=== PATIENT | female | born 1985 | race Caucasian/White ===

== ENCOUNTER 2016-09-10 20:51 | Emergency (ER) | payer SELFPAY ==
[~2016-09-10] VITALS: Ht 162.6 cm; Wt 82.0 kg
[~2016-09-10 20:51] MED LIST: PREN1TAB17 PO
[2016-09-10 20:55] VITALS: Ht 162.6 cm; Wt 82.0 kg
[2016-09-10 21:37] LABS: URINE BLOOD (Dip) POC 3+ (NEGATIVE)
[2016-09-10 22:27] LABS: ADD UMIC YES; URINE BILIRUBIN (Dip) NEGATIVE (NEGATIVE); URINE BLOOD (Dip) 3+ (NEGATIVE); URINE GLUCOSE (Dip) NEGATIVE (NEGATIVE); URINE KETONES (Dip) NEGATIVE (NEGATIVE); URINE LEUKOCYTE ESTERASE (Dip) NEGATIVE (NEGATIVE); URINE NITRITE (Dip) NEGATIVE (NEGATIVE); URINE TOTAL PROTEIN (Dip) TRACE (NEGATIVE); URINE UROBILINOGEN (Dip) 1.0 E.U./dL (0.1-1.0)
[2016-09-10 22:39] LABS: SQUAMOUS EPITHELIAL CELL,UR MODERATE; URINE COLOR DARK YELLOW (YELLOW); URINE RBCS >200 /HPF (0)
[2016-09-10 22:40] LABS: BACTERIA,URINE FEW
--- NOTE | 2016-09-10 22:49 | RADRPT ---
PROCEDURE: US Pelvis. CLINICAL INDICATION: Abdominal pain. TECHNIQUE: Multiple sonographic images of the pelvis were obtained utilizing a transabdominal and endovaginal technique. The images were reviewed on a PACS workstation. COMPARISON: None. FINDINGS: The uterus is visualized and measures 84 x 46 x 58 mm. The endometrial echo complex is normal and me asures 7 mm. IUD in normal position. There is no evidence for free fluid. The right ovary has a normal echotexture and measures 31 x 16 x 24 mm . The left ovary has a normal echotexture and measures 31 x 16 x 21 mm. No evident ovarian torsion. No adnexal masses are noted. IMPRESSION: No acute process in the pelvis. RPTAT: [facility] Physician Justyn Date Time Electronically viewed and signed by Physician Justyn on 09/10/2016 22:48 RS/
[2016-09-10 23:10] LABS: BASOPHILS % 0.7 % (0.0-2.0); EOSINOPHILS # 0.3 10^3/ul (0.0-0.5); EOSINOPHILS % 4.7 % (0.0-7.0); HEMATOCRIT 37.4 % (37.0-47.0); HEMOGLOBIN 12.9 g/dl (12.0-16.0); LYMPHOCYTES # 2.7 10^3/ul (0.8-2.9); LYMPHOCYTES % 44.1 % (15.0-51.0); MEAN CORPUSCULAR HEMOGLOBIN 30.7 pg (29.0-33.0); MEAN CORPUSCULAR HGB CONC 34.6 g/dl (32.0-37.0); MEAN CORPUSCULAR VOLUME 88.6 fl (82.0-101.0); MEAN PLATELET VOLUME 7.3 fl (7.4-10.4); MONOCYTE # 0.5 10^3/ul (0.3-0.9); MONOCYTES % 7.6 % (0.0-11.0); NEUTROPHIL # 2.6 10^3/ul (1.6-7.5); NEUTROPHILS % 42.9 % (39.0-77.0); PLATELET COUNT 261 10^3/UL (140-440); RED BLOOD COUNT 4.22 10^6/ul (4.20-5.40); RED CELL DISTRIBUTION WIDTH 13.4 % (11.5-14.5); UNCORRECTED WBC 6.1 10^3/ul (4.8-10.8); WHITE BLOOD COUNT 6.1 10^3/ul (4.8-10.8)
[2016-09-10 23:21] LABS: ALBUMIN 4.4 g/dl (3.3-4.9)
[2016-09-10 23:22] LABS: POTASSIUM 4.1 mmol/L (3.5-5.1)
[2016-09-10 23:24] LABS: ALBUMIN/GLOBULIN RATIO 1.33; BILIRUBIN,INDIRECT 0.2 mg/dl (0-1.1); BILIRUBIN,TOTAL 0.2 mg/dl (0.2-1.3); CREATININE 0.7 mg/dl (0.44-1.00); TOTAL PROTEIN 7.7 g/dl (6.1-8.1)
[2016-09-10 23:35] LABS: CONDITION 1
[2016-09-11] MEDS ORDERED: IBUP-1542 PO (01:05)
[2016-09-11 01:25] VITALS: BP 132/66; PULSE 75; RESP 18; TEMP 98
--- NOTE | 2016-09-11 01:34 | ERD ---
ER Documentation Chief Complaint Date/Time DATE: 09/11/16 TIME: 01:33 Chief Complaint vag bleed x 4 days, 24 pads/day HPI 31-year-old female with no significant past medical history presents to the ED complaining of vaginal bleeding that started 4 days ago. States that she is changing about 24 pads per day. States that her last menses started 4 days ago on September 07, 2016. Reports that they are normally regular. States that she starts the blood clots. States that she has an IUD placement, placed 3 years ago. Reports that she has some slight lower abdominal pelvic cramping. Denies any fever, nausea, vomiting, vaginal discharge, diarrhea, chest pain, shortness of breath. States that she is sexually active. Denies any concern for actually transmitted diseases. ROS All systems reviewed and are negative except as per history of present illness. Medications Home Meds Active Scripts Ibuprofen* (Motrin*) 600 Mg Tab, 600 MG PO Q6, #30 TAB Prov:DOUG CORNELIUS PA-C 09/11/16 Reported Medications Vit-Iron Fumarate-FA ( Tablet) 1 Each Tablet, 1 EACH PO DAILY 04/29/13 Allergies Allergies: Coded Allergies: No Known Allergy (Verified , 06/22/13) PMhx/Soc Medical and Surgical Hx: pt denies Medical Hx, pt denies Surgical Hx Hx Alcohol Use: No Hx Substance Use: No Hx Tobacco Use: No Physical Exam Vitals Vital Signs Date Time Temp Pulse Resp B/P Pulse Ox O2 Delivery O2 Flow Rate FiO2 09/11/16 01:25 98.0 75 18 132/66 100 Room Air 09/10/16 20:55 98.0 72 18 118/72 99 Physical Exam Const: Ble-phq-fqekwgsok, well-nourished. In no acute distress. Head: Atraumatic, normocephalic Eyes: Normal Conjunctiva without injection. No purulent discharge. ENT: Normal external ear, nose. Moist oropharynx without tonsillar exudates. Non -erythematous pharynx. Uvula midline. No drooling. No trismus. Neck: No cervical midline tenderness. Full range of motion. No meningismus. No cervical lymphadenopathy. No JVD. Resp: Clear to auscultation bilaterally. No wheezing, rhonchi, rales, or crackles. No accessory muscle use. No retractions. Cardio: Regular rate and rhythm. No murmurs, rubs or gallops. Abd: Soft, slight tenderness to palpation of the bilateral pelvis, non distended. Normal bowel sounds. No palpable masses. No rebound tenderness. No guarding. Negative McBurney's point. Negative psoas sign. Negative obturator sign. : See exam in MDM. Skin: No petechiae or rashes Back: No midline tenderness. No CVA tenderness. Ext: No cyanosis, or edema. Neur: Awake and alert. Normal gait. Normal coordination. Psych: Normal Mood and Affect Result Diagram: 09/10/16223909/10/162239 Results 24 hrs Laboratory Tests Test 09/10/16 21:35 09/10/16 21:37 09/10/16 22:40 Urine Bacteria FEW Urine Bilirubin NEGATIVE Urine Clarity HAZY Urine Color DARK YELLOW Urine Glucose NEGATIVE% Urine Hemoglobin 3+ Urine Ketones NEGATIVE Urine Leukocyte Esterase NEGATIVE Urine Microscopic RBC >200/HPF Urine Microscopic WBC 5-10/HPF Urine Nitrite NEGATIVE Urine Specific [place] 1.015 Urine Squamous Epithelial Cells MODERATE Urine Total Protein TRACE Urine Urobilinogen 1.0 E.U./dL Urine pH 6.5 Bedside Urine Blood 3+ Bedside Urine Glucose (UA) Negative Bedside Urine Ketones (LAB) Negative Bedside Urine Leukocyte Esterase (L Trace Bedside Urine Nitrite (LAB) Negative Bedside Urine Protein (LAB) 1+ Bedside Urine pH (LAB) 7.0 Alanine Aminotransferase (ALT/SGPT) 27IU/L Albumin 4.4g/dl Albumin/Globulin Ratio 1.33 Alkaline Phosphatase 80IU/L Anion Gap 19 Aspartate Amino Transf (AST/SGOT) 21IU/L Basophils # 0.010^3/ul Basophils % 0.7% Blood Morphology Comment Blood Urea Nitrogen 17mg/dl Calcium Level 9.0mg/dl Carbon Dioxide Level 26mmol/L Chloride Level 106mmol/L Creatinine 0.70mg/dl Direct Bilirubin 0.00mg/dl Eosinophils # 0.310^3/ul Eosinophils % 4.7% Globulin 3.30g/dl Glucose Level 88mg/dl Hematocrit 37.4% Hemoglobin 12.9g/dl Indirect Bilirubin 0.2mg/dl Lymphocytes # 2.710^3/ul Lymphocytes % 44.1% Mean Corpuscular Hemoglobin 30.7pg Mean Corpuscular Hemoglobin Concent 34.6g/dl Mean Corpuscular Volume 88.6fl Mean Platelet Volume 7.3fl Monocytes # 0.510^3/ul Monocytes % 7.6% Neutrophils # 2.610^3/ul Neutrophils % 42.9% Nucleated Red Blood Cells # 0.010^3/ul Nucleated Red Blood Cells % 0.0/100WBC Platelet Count 99192^3/UL Potassium Level 4.1mmol/L Red Blood Count 4.2210^6/ul Red Cell Distribution Width 13.4% Sodium Level 147mmol/L Total Bilirubin 0.2mg/dl Total Protein 7.7g/dl White Blood Count 6.110^3/ul Procedures/MDM 31-year-old female with no significant past medical history presents the ED complaining of vaginal bleeding. Patient is afebrile and nontoxic-appearing. Patient has normal vital signs. Patient is hemodynamically stable. Patient was further worked up with CBC, CMP, lipase, UA, urine , pelvic ultrasound. Patient denied wanting any pain medications. CBC: No leukocytosis. No e/o of systemic infection. No e/o anemia. CMP: No e/o severe acidosis, alkalosis, renal failure, diabetic ketoacidosis, liver disease Urine: Trace leukocyte esterase with 5-10 WBC noted, no nitrites, 3+ hematuria. Patient is not complaining of any dysuria, urgency, frequency, flank pain. Low suspicion for UTI and pyelonephritis. Urine : negative PROCEDURE: US Pelvis. CLINICAL INDICATION: Abdominal pain. TECHNIQUE: Multiple sonographic images of the pelvis were obtained utilizing a transabdominal and endovaginal technique. The images were reviewed on a PACS workstation. COMPARISON: None. FINDINGS: The uterus is visualized and measures 84 x 46 x 58 mm. The endometrial echo complex is normal and measures 7 mm. IUD in normal position. There is no evidence for free fluid. The right ovary has a normal echotexture and measures 31 x 16 x 24 mm . The left ovary has a normal echotexture and measures 31 x 16 x 21 mm. No evident ovarian torsion. No adnexal masses are noted. IMPRESSION: No acute process in the pelvis. Patient's bleeding symptoms have stabilized while in the department. Patient has possible dysfunctional uterine bleeding. Low suspicion for symptomatic anemia, ectopic , sepsis, PID, appendicitis, ovarian torsion, tubo- ovarian abscess, surgical abdomen, or other emergent conditions. Discharge medications: Ibuprofen Patient to follow up with [facility] in 2 days for further evaluation and treatment. Patient is to return sooner to the ED for any worsening symptoms. Patient's questions were answered. Patient understood and agreed with discharge plan. Departure Diagnosis: Primary Impression: Vaginal bleeding Condition: Stable Patient Instructions: Control: IUD (Intrauterine Device), Dysfunctional Uterine Bleeding Referrals: [facility] YOU HAVE RECEIVED A MEDICAL SCREENING EXAM AND THE RESULTS INDICATE THAT YOU DO NOT HAVE A CONDITION THAT REQUIRES URGENT TREATMENT IN THE EMERGENCY DEPARTMENT. FURTHER EVALUATION AND TREATMENT OF YOUR CONDITION CAN WAIT UNTIL YOU ARE SEEN IN YOUR DOCTORS OFFICE WITHIN THE NEXT 1-2 DAYS. IT IS YOUR RESPONSIBILITY TO MAKE AN APPOINTMENT FOR FOLOW-UP CARE. IF YOU HAVE A PRIMARY DOCTOR --you should call your primary doctor and schedule an appointment IF YOU DO NOT HAVE A PRIMARY DOCTOR YOU CAN CALL OUR PHYSICIAN REFERRAL HOTLINE AT IF YOU CAN NOT AFFORD TO SEE A PHYSICIAN YOU CAN CHOSE FROM THE FOLLOWING [facility] [address] [facility] [address] [facility] [address] [facility] [address] [address] [facility] [address] [facility]. [address] [facility] [facility] YOU HAVE RECEIVED A MEDICAL SCREENING EXAM AND THE RESULTS INDICATE THAT YOU DO NOT HAVE A CONDITION THAT REQUIRES URGENT TREATMENT IN THE EMERGENCY DEPARTMENT. FURTHER EVALUATION AND TREATMENT OF YOUR CONDITION CAN WAIT UNTIL YOU ARE SEEN IN YOUR DOCTORS OFFICE WITHIN THE NEXT 1-2 DAYS. IT IS YOUR RESPONSIBILITY TO MAKE AN APPOINTMENT FOR FOLOW-UP CARE. IF YOU HAVE A PRIMARY DOCTOR --you should call your primary doctor and schedule and appointment IF YOU DO NOT HAVE A PRIMARY DOCTOR YOU CAN CALL OUR PHYSICIAN REFERRAL HOTLINE AT . IF YOU CAN NOT AFFORD TO SEE A PHYSICIAN YOU CAN CHOSE FROM THE FOLLOWING [facility]: [facility] [address] [place] [address] [facility] [address] [place] [address] [facility] [address] [place] [address] [employer] [place] [address] [facility] [address] [place] [address] OFFICE FAX , [facility] [address] [place] [address] [address] [facility] [address] [place] [address] [address] PAD[address], [facility] [address] [facility] [facility] [address] [address] [address] [place] [address] [facility] [address] [place] [address] [phone] [facility] [address] - [address] LOBO REGI [address], [facility] [address] [address], [facility] [address] [facility]. [address], [facility] [address] [address], [facility] [address] [place], [place] [id number] [facility] Hours: 8:00 am - 5:00 pm Additional Instructions: FOLLOW UP WITH YOUR PRIMARY CARE PHYSICIAN TOMORROW for a referral to OB/ DIRECTOR SOCIAL SERVICE.Return to this facility if you are not improving as expected. DOUG CORNELIUS PA-C Sep 11, 2016 01:34 DOUG CORNELIUS PA-C Sep 11, 2016 01:34
== END 2016-09-11 01:27 | disposition home or self-care (01) ==
LOC: FTE 20:51
DX: N93.9 Abnormal uterine and vaginal bleeding, unspecified (principal); R10.2 Pelvic and perineal pain
CPT/HCPCS: 36415; 76856; 80053; 81001; 81003; 85025

== ENCOUNTER 2016-09-15 12:03 | Emergency (ER) | payer SELFPAY ==
[~2016-09-15] VITALS: Ht 160 cm; Wt 82.0 kg
[~2016-09-15 12:03] MED LIST changes: +IBUP-1542 PO
[2016-09-15 12:11] VITALS: Ht 160 cm; Wt 82.0 kg
[2016-09-15 14:17] LABS: URINE BLOOD (Dip) POC Negative (NEGATIVE)
--- NOTE | 2016-09-15 14:37 | RADRPT ---
PROCEDURE: CT Head without. CLINICAL INDICATION: Syncope. TECHNIQUE: The study was performed utilizing a multi-slice, multidetector CT scanner. Direct spira l 1 mm axial sections were obtained through the head without the use of intravenous contrast materia l. Coronal and sagittal reformations were obtained. The images were reviewed on a PACS workstation. RADIATION DOSE: CTDIvol: 44.3 mGyDLP: 630.2 mGy-cm COMPARISON: No prior studies are available for comparison. FINDINGS: There is no intracranial hemorrhage, extra-axial fluid collection, mass lesion, midline shift or hyd rocephalus. The ventricles, sulci and cisterns are within normal limits. The white matter is unrem arkable. The tse-white matter differentiation is preserved. The basal cisterns are patent. The m idline structures are intact. The orbits, calvarium and extracranial soft tissues are normal in phu earance. The visualized paranasal sinuses, mastoid air cells and middle ear cavities are normally ae rated. IMPRESSION: 1. No acute intracranial abnormality. No intracranial hemorrhage, extra-axial fluid collection, ma ss lesion or hydrocephalous. RPTAT: DD .Alber Navarrete MD, MD Date Time Electronically viewed and signed by .Alber Navarrete MD, on 09/15/2016 14:36 .S/
[2016-09-15 14:43] LABS: ALBUMIN 4.8 g/dl (3.3-4.9)
[2016-09-15 14:44] LABS: POTASSIUM 4.5 mmol/L (3.5-5.1)
[2016-09-15 14:45] LABS: BASOPHIL # 0.1 10^3/ul (0.0-0.1); BASOPHILS % 0.7 % (0.0-2.0); EOSINOPHILS # 0.1 10^3/ul (0.0-0.5); HEMATOCRIT 41.3 % (37.0-47.0); HEMOGLOBIN 14.3 g/dl (12.0-16.0); LYMPHOCYTES # 2.3 10^3/ul (0.8-2.9); LYMPHOCYTES % 31.2 % (15.0-51.0); MEAN CORPUSCULAR HEMOGLOBIN 30.6 pg (29.0-33.0); MEAN CORPUSCULAR HGB CONC 34.5 g/dl (32.0-37.0); MEAN CORPUSCULAR VOLUME 88.8 fl (82.0-101.0); MEAN PLATELET VOLUME 7.8 fl (7.4-10.4); MONOCYTE # 0.5 10^3/ul (0.3-0.9); MONOCYTES % 6.5 % (0.0-11.0); NEUTROPHIL # 4.4 10^3/ul (1.6-7.5); NEUTROPHILS % 59.6 % (39.0-77.0); PLATELET COUNT 243 10^3/UL (140-440); RED BLOOD COUNT 4.66 10^6/ul (4.20-5.40); RED CELL DISTRIBUTION WIDTH 12.4 % (11.5-14.5); UNCORRECTED WBC 7.4 10^3/ul (4.8-10.8); WHITE BLOOD COUNT 7.4 10^3/ul (4.8-10.8)
[2016-09-15 14:46] LABS: BILIRUBIN,INDIRECT 0.3 mg/dl (0-1.1); BILIRUBIN,TOTAL 0.3 mg/dl (0.2-1.3); CREATININE 0.56 mg/dl (0.44-1.00)
[2016-09-15 14:47] LABS: ALBUMIN/GLOBULIN RATIO 1.17; TOTAL PROTEIN 8.9 g/dl (6.1-8.1)
--- NOTE | 2016-09-15 15:02 | RADRPT ---
PROCEDURE: CT Cervical Spine without contrast. CLINICAL INDICATION: Loss of consciousness, syncope. TECHNIQUE: The study was performed on a multislice multidetector CT scanner. Spiral axial 1 mm im ages were obtained through the cervical spine and reformatted at 2.5 mm slice thickness without cont rast. Sagittal and coronal reformations were created from the raw axial data. The images were review ed on a PACS workstation. RADIATION DOSE: CTDIvol: 22.3 mGyDLP: 492.1 mGy-cm COMPARISON: No prior studies are available for comparison. FINDINGS: The alignment of the cervical spine is within normal limits. The vertebral body heights are maintai leni. There is no evidence of fracture or dislocation. The marrow density is within normal limits. The intervertebral disc spaces appear normal. The cervical canal is unremarkable. There is a no bone destruction or sclerosis. The paraspinal soft tissues are unremarkable. No significant paraspinal soft tissue swelling. C2-3: The posterior margin of the disc, thecal sac and neural foramina are normal in appearance. C3-4: The posterior margin of the disc, thecal sac and neural foramina are normal in appearance. C4-5: The posterior margin of the disc, thecal sac and neural foramina are normal in appearance. C5-6: The posterior margin of the disc, thecal sac and neural foramina are normal in appearance. C6-7: The posterior margin of the disc, thecal sac and neural foramina are normal in appearance. C7-T1: The posterior margin of the disc, thecal sac and neural foramina are normal in appearance. IMPRESSION: 1. No acute abnormality of the cervical spine. No evidence of fracture or dislocation. RPTAT: DD .Alber Navarrete MD, MD Date Time Electronically viewed and signed by .Alber Navarrete MD, MD on 09/15/2016 15:02 .S/
--- NOTE | 2016-09-15 15:03 | ERD ---
ER Documentation Chief Complaint Date/Time DATE: 09/15/16 TIME: 15:02 Chief Complaint Pt fell in the shower, unknow cause, loss consciousness, CARTER dizziness. HPI Is a 31-year-old female who presents to the emergency department today after syncopal episode last night. Patient states she got dizzy and fell in the shower and she does not know what happened. States she has a headache and head pressure and neck pain as well as some nausea but no vomiting. Patient states that she gets more dizzy going from sitting to standing. States her son found her in the shower. States she has a history of migraines. I did obtain a head CT as well as laboratory work and an EKG ROS All systems reviewed and are negative except as per history of present illness. Medications Home Meds Active Scripts Hydrocodone/Acetaminophen ([place] 5-325 Tablet) 1 Each Tablet, 1 TAB PO Q6H Y for PAIN, #10 TAB Prov:VIJAY OSULLIVAN PA-C 09/15/16 Cephalexin* (Keflex*) 500 Mg Capsule, 500 MG PO QID for 7 Days, CAP Prov:VIJAY OSULLIVAN PA-C 09/15/16 Ibuprofen* (Motrin*) 600 Mg Tab, 600 MG PO Q6, #30 TAB Prov:DOUG CORNELIUS PA-C 09/11/16 Reported Medications Vit-Iron Fumarate-FA ( Tablet) 1 Each Tablet, 1 EACH PO DAILY 04/29/13 Allergies Allergies: Coded Allergies: No Known Allergy (Verified , 06/22/13) PMhx/Soc Medical and Surgical Hx: pt denies Medical Hx, pt denies Surgical Hx Hx Alcohol Use: No Hx Substance Use: No Hx Tobacco Use: No Physical Exam Vitals Vital Signs Date Time Temp Pulse Resp B/P Pulse Ox O2 Delivery O2 Flow Rate FiO2 09/15/16 15:12 93 18 122/74 99 Room Air 83 130/82 102 117/65 09/15/16 12:11 98.1 89 20 143/78 98 Physical Exam Const: No acute distress Head: Small frontal hematoma left side. No lacerations. No posterior aspect hematoma Eyes: Normal Conjunctiva. PERRLA. EOM intact ENT: Normal External Ears, Nose and Mouth. Neck: Full range of motion..~ No meningismus. Resp: Clear to auscultation bilaterally Cardio: Regular rate and rhythm, no murmurs Abd: Soft, non tender, non distended. Normal bowel sounds Skin: No petechiae or rashes Back: No midline or flank tenderness Ext: No cyanosis, or edema Neur: Awake and alert. Cranial nerves II through XII intact. No gait ataxia. Psych: Normal Mood and Affect Result Diagram: 09/15/16 1410 09/15/16 1410 Results 24 hrs Laboratory Tests Test 09/15/16 14:10 09/15/16 14:18 Alanine Aminotransferase (ALT/SGPT) 22IU/L Albumin 4.8g/dl Albumin/Globulin Ratio 1.17 Alkaline Phosphatase 84IU/L Anion Gap 21 Aspartate Amino Transf (AST/SGOT) 28IU/L Basophils # 0.110^3/ul Basophils % 0.7% Blood Urea Nitrogen 16mg/dl Calcium Level 10.0mg/dl Carbon Dioxide Level 27mmol/L Chloride Level 103mmol/L Creatinine 0.56mg/dl Direct Bilirubin 0.00mg/dl Eosinophils # 0.110^3/ul Eosinophils % 2.0% Globulin 4.10g/dl Glucose Level 91mg/dl Hematocrit 41.3% Hemoglobin 14.3g/dl Indirect Bilirubin 0.3mg/dl Lymphocytes # 2.310^3/ul Lymphocytes % 31.2% Mean Corpuscular Hemoglobin 30.6pg Mean Corpuscular Hemoglobin Concent 34.5g/dl Mean Corpuscular Volume 88.8fl Mean Platelet Volume 7.8fl Monocytes # 0.510^3/ul Monocytes % 6.5% Neutrophils # 4.410^3/ul Neutrophils % 59.6% Nucleated Red Blood Cells # 0.010^3/ul Nucleated Red Blood Cells % 0.0/100WBC Platelet Count 68653^3/UL Potassium Level 4.5mmol/L Red Blood Count 4.6610^6/ul Red Cell Distribution Width 12.4% Sodium Level 146mmol/L Total Bilirubin 0.3mg/dl Total Protein 8.9g/dl White Blood Count 7.410^3/ul Bedside Urine Blood Negative Bedside Urine Glucose (UA) Negative Bedside Urine Ketones (LAB) Negative Bedside Urine Leukocyte Esterase (L 2+ Bedside Urine Nitrite (LAB) Negative Bedside Urine Protein (LAB) Trace Bedside Urine pH (LAB) 6.5 Current Medications Medications (Trade) Dose Ordered Sig/Pattie Route PRN Reason Start Time Stop Time Status Last Admin Dose Admin Ondansetron HCl 4 mg 4 mg ONCE STAT IV 09/15/16 15:35 09/15/16 15:36 Cancel Sodium Chloride (NS) 1,000 ml @ 1,000 mls/hr Q1H ONCE IV 09/15/16 16:00 09/15/16 16:59 Cancel DIAGNOSTIC IMAGING REPORT Patient: NICOL LACEY : 1985 Age: 31 Sex: F MR #: [id number] DOS: 09/15/16 0000 Ordering MD: VIJAY OSULLIVAN PA-C Location: [facility] Room/Bed: PROCEDURE: CT Head without. CLINICAL INDICATION: Syncope. TECHNIQUE: The study was performed utilizing a multi-slice, multidetector CT scanner. Direct spiral 1 mm axial sections were obtained through the head without the use of intravenous contrast material. Coronal and sagittal reformations were obtained. The images were reviewed on a PACS workstation. RADIATION DOSE: CTDIvol: 44.3 mGy DLP: 630.2 mGy-cm COMPARISON: No prior studies are available for comparison. FINDINGS: There is no intracranial hemorrhage, extra-axial fluid collection, mass lesion, midline shift or hydrocephalus. The ventricles, sulci and cisterns are within normal limits. The white matter is unremarkable. The tse-white matter differentiation is preserved. The basal cisterns are patent. The midline structures are intact. The orbits, calvarium and extracranial soft tissues are normal in appearance. The visualized paranasal sinuses, mastoid air cells and middle ear cavities are normally aerated. IMPRESSION: 1. No acute intracranial abnormality. No intracranial hemorrhage, extra-axial fluid collection, mass lesion or hydrocephalous. RPTAT: DD .Alber Navarrete MD, Date Time Electronically viewed and signed by .Alber Navarrete MD, MD on 09/15/2016 14: 36 .S/ CC: VIJAY OSULLIVAN PA-C DIAGNOSTIC IMAGING REPORT Patient: NICOL LACEY : 1985 Age: 31 Sex: F MR #: [id number] DOS: 09/15/16 0000 Ordering MD: VIJAY OSULLIVAN PA-C Location: [facility] Room/Bed: PROCEDURE: CT Cervical Spine without contrast. CLINICAL INDICATION: Loss of consciousness, syncope. TECHNIQUE: The study was performed on a multislice multidetector CT scanner. Spiral axial 1 mm images were obtained through the cervical spine and reformatted at 2.5 mm slice thickness without contrast. Sagittal and coronal reformations were created from the raw axial data. The images were reviewed on a PACS workstation. RADIATION DOSE: CTDIvol: 22.3 mGy DLP: 492.1 mGy-cm COMPARISON: No prior studies are available for comparison. FINDINGS: The alignment of the cervical spine is within normal limits. The vertebral body heights are maintained. There is no evidence of fracture or dislocation. The marrow density is within normal limits. The intervertebral disc spaces appear normal. The cervical canal is unremarkable. There is a no bone destruction or sclerosis. The paraspinal soft tissues are unremarkable. No significant paraspinal soft tissue swelling. C2-3: The posterior margin of the disc, thecal sac and neural foramina are normal in appearance. C3-4: The posterior margin of the disc, thecal sac and neural foramina are normal in appearance. C4-5: The posterior margin of the disc, thecal sac and neural foramina are normal in appearance. C5-6: The posterior margin of the disc, thecal sac and neural foramina are normal in appearance. C6-7: The posterior margin of the disc, thecal sac and neural foramina are normal in appearance. C7-T1: The posterior margin of the disc, thecal sac and neural foramina are normal in appearance. IMPRESSION: 1. No acute abnormality of the cervical spine. No evidence of fracture or dislocation. RPTAT: DD .Alber Navarrete MD, Date Time Electronically viewed and signed by .Alber Navarrete MD, on 09/15/2016 15: 02 .S/ CC: VIJAY OSULLIVAN PA-C Procedures/MDM This is a 31-year-old female who presents to the emergency department today for a syncopal episode that occurred last night. Patient was complaining of headache and neck pain and therefore I did obtain imaging as well as laboratory work and an EKG EKG read and interpreted by Dr. Otero: [address] elevation. No QT prolongation. Normal sinus rhythm. Low suspicion for acute ND, PE, pericarditis. Head CT shows no acute intracranial abnormality. There is no intracranial hemorrhage, fluid collection, mass lesion or hydrocephalus. Midline structures are intact. Low suspicion for acute hemorrhage, mass, abscess. Patient is afebrile and otherwise well-appearing. She has no focal neurologic deficits and no gait ataxia Cervical spine shows no acute abnormality. There is no evidence of fracture or dislocation. Symptoms of neck pain consistent with a contusion versus strain versus sprain Laboratory work is no elevated white blood cell count. She is not anemic. Her platelets are within normal limits. Her electrolytes are within normal limits. Her glucose is within normal limits. Her liver function is within normal limits. test is negative. UA shows 2+ leukocyte esterase. I will treat the patient for urinary tract infection. Orthostatic vital signs were also done on the patient and patient failed her orthostatics. Her blood pressure on intake was 143/78. Orthostatics showed 122/ 74 supine, 130/82 sitting and 117/65 standing. I explained to the patient twice that I wanted to give her IV fluids to help with her blood pressure and her vital signs and that it would help improve her symptoms of feeling dizzy from going from sitting to standing and patient refused. Patient stated that she just wanted to go home. Excellent to the patient I would need to have her sign a form that she wanted to leave AGAINST MEDICAL ADVICE and patient was willing to sign that. 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 Patient understood. At this time I feel the patient has the capacity to make informed decisions. Patient's symptoms of syncope or headache, dizziness may be related to her urinary tract infection or possibly orthostatic hypotension. There is no evidence of suggest cardiac causes syncope. Low suspicion for hypoglycemia or micturition syncope. She was seen here 5 days ago for heavy vaginal bleeding that patient indicated he had stopped. I do not fill the patient's syncope is related to anemia or blood loss at this time I discussed the patient with Dr. Clifton and Dr. Otero and they are in agreement with the plan. Departure Diagnosis: Primary Impression: Syncope Syncope type: unspecified Qualified Code: R55 - Syncope, unspecified syncope type Additional Impression: Head injury Encounter type: initial encounter Qualified Code: S09.90XA - Head injury, initial encounter Condition: Fair VIJAY OSULLIVAN PA-C Sep 15, 2016 15:03
[2016-09-15 15:11] LABS: CONDITION 1
[2016-09-15 15:12] VITALS: BP 117/65; PULSE 102; RESP 18
[2016-09-15] MEDS ORDERED: ONDANSETRON 4 MG INJ IV STA (15:35)
[2016-09-15] MEDS ORDERED: CEPH-443 PO (15:53)
[2016-09-15] MEDS ORDERED: HYDR-906 PO (15:53)
[2016-09-15] MEDS ORDERED: SOD CHLORIDE 0.9% 1,000 ML IV ONE (16:00)
== END 2016-09-15 16:38 | disposition home or self-care (01) ==
LOC: FTE 12:03
DX: R55 Syncope and collapse (principal); S09.90XA Unspecified injury of head, initial encounter; W18.2XXA Fall in (into) shower or empty bathtub, initial encounter; Y92.9 Unspecified place or not applicable
CPT/HCPCS: 70450; 72125; 80053; 81003; 85025; 93005; J7030

== ENCOUNTER 2017-06-28 08:14 | Emergency (ER) | payer MEDICAID ==
[~2017-06-28] VITALS: Ht 162.6 cm; Wt 84.0 kg
[~2017-06-28 08:14] MED LIST changes: +CEPH-443 PO; +HYDR-906 PO
[2017-06-28 08:21] VITALS: Ht 162.6 cm; Wt 84.0 kg
--- NOTE | 2017-06-28 11:14 | ERD ---
ER Documentation Chief Complaint Chief Complaint cold symptoms x 4 days HPI Patient is a 32-year-old female with no medical problems who presents with cold symptoms. She has had a cough and cold over the past 4 days. She has 2 children here with viral symptoms as well. She has had Tylenol for her symptoms but no other treatment. She has no fever. She has no vomiting or diarrhea. ROS All systems reviewed and are negative except as per history of present illness. Medications Home Meds Active Scripts Hydrocodone/Acetaminophen ([place] 5-325 Tablet) 1 Each Tablet, 1 TAB PO Q6H Y for PAIN, #10 TAB Prov:VIJAY OSULLIVAN PA-C 09/15/16 Cephalexin* (Keflex*) 500 Mg Capsule, 500 MG PO QID for 7 Days, CAP Prov:VIJAY OSULLIVAN PA-C 09/15/16 Ibuprofen* (Motrin*) 600 Mg Tab, 600 MG PO Q6, #30 TAB Prov:DOUG CORNELIUS PA-C 09/11/16 Reported Medications Vit-Iron Fumarate-FA ( Tablet) 1 Each Tablet, 1 EACH PO DAILY 04/29/13 Allergies Allergies: Coded Allergies: No Known Allergy (Verified , 06/28/17) PMhx/Soc Medical and Surgical Hx: pt denies Medical Hx, pt denies Surgical Hx Hx Alcohol Use: No Hx Substance Use: No Hx Tobacco Use: No FmHx Family History: No diabetes Physical Exam Vitals Vital Signs Date Time Temp Pulse Resp B/P Pulse Ox O2 Delivery O2 Flow Rate FiO2 06/28/17 08:21 97.2 77 18 128/78 99 Physical Exam Const: No acute distress Head: Atraumatic Eyes: Normal Conjunctiva ENT: Normal External Ears, Nose and Mouth. Neck: Full range of motion..~ No meningismus. Resp: Clear to auscultation bilaterally Cardio: Regular rate and rhythm, no murmurs Abd: Soft, non tender, non distended. Normal bowel sounds Skin: No petechiae or rashes Back: No midline or flank tenderness Ext: No cyanosis, or edema Neur: Awake and alert Psych: Normal Mood and Affect Procedures/MDM Patient is a 32-year-old female presents with viral symptoms. I believe she has an upper respiratory infection from a viral source. I doubt serious bacterial infection. I do not believe she requires antibiotics at this time. I believe outpatient management is appropriate. The patient can follow-up with the primary doctor within 24-48 hours and can return if symptoms worsen. She will be given a list of the local clinics that she says she does not currently have a primary doctor. Departure Diagnosis: Primary Impression: URI (upper respiratory infection) URI type: unspecified viral URI Qualified Code: J06.9 - Viral upper respiratory tract infection Condition: Fair Patient Instructions: Uri, Viral, No Abx (Adult) Referrals: [facility] YOU HAVE RECEIVED A MEDICAL SCREENING EXAM AND THE RESULTS INDICATE THAT YOU DO NOT HAVE A CONDITION THAT REQUIRES URGENT TREATMENT IN THE EMERGENCY DEPARTMENT. FURTHER EVALUATION AND TREATMENT OF YOUR CONDITION CAN WAIT UNTIL YOU ARE SEEN IN YOUR DOCTORS OFFICE WITHIN THE NEXT 1-2 DAYS. IT IS YOUR RESPONSIBILITY TO MAKE AN APPOINTMENT FOR FOLOW-UP CARE. IF YOU HAVE A PRIMARY DOCTOR --you should call your primary doctor and schedule an appointment IF YOU DO NOT HAVE A PRIMARY DOCTOR YOU CAN CALL OUR PHYSICIAN REFERRAL HOTLINE AT IF YOU CAN NOT AFFORD TO SEE A PHYSICIAN YOU CAN CHOSE FROM THE FOLLOWING [facility] [address] [facility]. [facility] [address] [facility] [facility] [address] [facility]. [facility] [address] [address] [facility]. [facility] [address] [facility]. [facility]. [address] Additional Instructions: Call your primary care doctor TOMORROW for an appointment during the next 1-2 days.See the doctor sooner or return here if your condition worsens before your appointment time. BEATA MILLER MD Jun 28, 2017 11:14
== END 2017-06-28 09:25 | disposition home or self-care (01) ==
LOC: FTE 08:14
DX: J06.9 Acute upper respiratory infection, unspecified (principal)
CPT/HCPCS: 99282